=== PATIENT | female | born 1950 | race African-American/Black ===

== ENCOUNTER 2017-05-13 05:25 | Inpatient (IN) | payer MEDICARE, MEDICAID ==
[~2017-05-13] VITALS: Ht 152.4 cm; Wt 48.2 kg
[2017-05-13] VITALS (46 sets, daily range): BP systolic 104–194; BP diastolic 30–108
[2017-05-13] MEDS ORDERED: MIDAZOLAM HCL 5 MG/ML VIAL ONE (05:48)
[2017-05-13] MEDS ORDERED: PROPOFOL 10MG/ML 100ML 100 ML IV ONE ×2 (05:49→06:00)
[2017-05-13] MEDS ORDERED: ONDANSETRON HCL 4MG/2ML VIAL IV ONE (06:00)
[2017-05-13] MEDS ORDERED: MORPHINE SULFATE 4 MG/ML CPJ (NOT FOR IM USE) IV STA (06:00)
[2017-05-13] MEDS ORDERED: SUCCINYLCHOLINE CHLORIDE 200MG/10ML VIAL IV ONE ×2 (06:00)
[2017-05-13] MEDS ORDERED: ETOMIDATE 2MG/ML 10ML VIAL IV ONE ×2 (06:00)
[2017-05-13] MEDS ORDERED: VECURONIUM BROMIDE 10 MG/VIAL IV ONE ×2 (06:00)
[2017-05-13] MEDS ORDERED: ONDANSETRON HCL 4MG/2ML VIAL IV STA (06:00)
[2017-05-13] MEDS ORDERED: STERILE WATER FOR INJECTION 10ML VIAL ONE (06:00)
[2017-05-13] MEDS ORDERED: MIDAZOLAM HCL 2 MG/2 ML VIAL IV ONE (06:15)
[2017-05-13 06:53] LABS: BASOPHILS % 0.2 % (0.0-2.0); EOSINOPHILS % 1.6 % (0.0-5.0); HEMATOCRIT. 29.4 % (36.0-48.0); LYMPHOCYTES % 33.1 % (20.0-50.0); MEAN CORPUSCULAR HEMOGLOBIN 24.8 pg (28.0-32.0); MEAN CORPUSCULAR VOLUME 81.3 fL (81.0-99.0); MEAN PLATELET VOLUME 9.1 fl (7.4-10.4); MONOCYTES % 5.4 % (2.0-8.0); NEUTROPHILS % 59.7 % (40.0-76.0); PLATELET 283 x1000/uL (130-400); RED BLOOD CELL COUNT 3.62 mill/uL (4.2-5.4); RED CELL DISTRIBUTION WIDTH 17.6 % (11.6-14.6)
[2017-05-13 06:54] LABS: BG BASE EXCESS -8.1 mmol/L (-2.0-2.0); BG CARBOXYHEMOGLOBIN 0.2 % (0.5-1.5); BG DEOXYHEMOGLOBIN 1.2 % (0.0-5.0); BG FRACTION INSPIRED OXYGEN 100; BG HCO3 ACT 18.2 mmol/L (22.0-26.0); BG METHEMOGLOBIN 0.3 % (0.0-1.5); BG OXYGEN SATURATION 98.8 % (92.0-98.5); BG OXYHEMOGLOBIN 98.3 % (94.0-97.0); BG PH 7.275 (7.350-7.450); BG PO2 171.7 mmHg (75.0-100.0); BG SAMPLE SITE RIGHT RADIAL; BG TIDAL VOLUME(mL) 450 mL; BG TOTAL HEMOGLOBIN 10.2 g/dL (12.0-18.0); BG VENT MODE VENT - A/C; BG VENT RATE 16 set
[2017-05-13 07:04] LABS: CHLORIDE 107 mEq/L (98-107); TROPONIN I 0.02 ng/mL (0.00-0.04)
[2017-05-13 07:11] LABS: CARBON DIOXIDE 16 mEq/L (21-32)
[2017-05-13 07:23] LABS: INR 1.1; PARTIAL THROMBOPLASTIN TIME 21.5 sec (23.4-31.0)
[2017-05-13 07:42] LABS: CLARITY URINE CLEAR (CLEAR); COLOR URINE YELLOW (YELLOW); GLUCOSE URINE 3+ (NEGATIVE); KETONES URINE NEGATIVE (NEGATIVE); LEUKOCYTE ESTERASE URINE NEGATIVE (NEGATIVE); NITRITE URINE NEGATIVE (NEGATIVE); OCCULT BLOOD URINE 1+ (NEGATIVE); PH URINE 5.5 (4.5-8.0); PROTEIN URINE 1+ (NEGATIVE); SPECIFIC GRAVITY URINE 1.014 (1.005-1.030); UROBILINOGEN URINE 0.2 E.U./dL (0.2-1.0)
[2017-05-13] MEDS ORDERED: PROPOFOL 10MG/ML 100ML 100 ML IV PRN (09:30)
[2017-05-13] MEDS ORDERED: ENOXAPARIN 60MG/0.6ML SYR SUBCUT SCH (10:00)
[2017-05-13] MEDS: PANTOPRAZOLE SODIUM 40 MG/VIAL IV SCH (10:30)
[2017-05-13] MEDS ORDERED: FUROSEMIDE 40MG/4ML VIAL IVP NR (11:00)
[2017-05-13] MEDS ORDERED: IPRATROPIUM/ALBUTEROL 0.5-3(2.5)MG/3ML NEB HHN PRN (11:00)
[2017-05-13] MEDS ORDERED: IPRATROPIUM/ALBUTEROL 0.5-3(2.5)MG/3ML NEB INH PRN (11:15)
[2017-05-13] MEDS ORDERED: CLONIDINE 0.1MG TABLET PO PRN (11:15)
[2017-05-13] MEDS ORDERED: PIPERACILLIN/TAZ 3.375G PREMIX 50 ML IV SCH (11:15)
[2017-05-13] MEDS ORDERED: MAGNESIUM/ALUMINUM HYDROXIDE/SIMETHICONE 30ML UDC PO PRN (11:15)
[2017-05-13] MEDS ORDERED: ONDANSETRON HCL 4MG/2ML VIAL IV PRN (11:15)
[2017-05-13] MEDS ORDERED: DEXTROSE 50% WATER 50ML SYRINGE IV PRN (11:30)
[2017-05-13] MEDS: INSULIN LISPRO 100 UNITS/ML SUBCUT SCH ×3 (12:00→20:44)
[2017-05-13] MEDS: BLOOD SUGAR DIAGNOSTIC STRIP TEST SCH ×2 (12:00→18:02)
[2017-05-13] MEDS: BUDESONIDE 0.5MG/2ML NEB HHN SCH (12:10)
[2017-05-13] MEDS: IPRATROPIUM/ALBUTEROL 0.5-3(2.5)MG/3ML NEB HHN SCH ×3 (12:11→20:27)
[2017-05-13] MEDS: ASPIRIN 81MG TABLET PO SCH (12:27)
[2017-05-13 12:35] LABS: CHLORIDE 111 mEq/L (98-107)
[2017-05-13 12:44] LABS: CARBON DIOXIDE 23 mEq/L (21-32)
[2017-05-13] MEDS ORDERED: VANCOMYCIN 1 G PREMIX 200 ML IV SCH (13:00)
[2017-05-13] MEDS: PIPERACILLIN/TAZ 2.25G PREMIX 50 ML IV SCH ×2 (13:29→18:05)
[2017-05-13] MEDS: NITROGLYCERIN OINT 1GM/INCH UDPKT TD SCH ×2 (13:30→22:05)
[2017-05-13] MEDS: PROPOFOL 10MG/ML 100ML 100 ML IV PRN ×2 (13:31→22:14)
[2017-05-13 14:17] LABS: CREATINE KINASE MB FRACTION 4.8 ng/mL (0.5-3.6)
[2017-05-13 14:27] LABS: TROPONIN I 0.54 ng/mL (0.00-0.04)
[2017-05-13 17:04] LABS: CLARITY URINE TURBID (CLEAR); COLOR URINE YELLOW (YELLOW); GLUCOSE URINE NEGATIVE (NEGATIVE); KETONES URINE NEGATIVE (NEGATIVE); LEUKOCYTE ESTERASE URINE TRACE (NEGATIVE); NITRITE URINE NEGATIVE (NEGATIVE); OCCULT BLOOD URINE 2+ (NEGATIVE); PROTEIN URINE NEGATIVE (NEGATIVE); SPECIFIC GRAVITY URINE 1.014 (1.005-1.030); UROBILINOGEN URINE 0.2 E.U./dL (0.2-1.0)
[2017-05-13 17:11] LABS: *AMPHETAMINES SCREEN URINE NEGATIVE (NEGATIVE); *BARBITURATES SCREEN URINE NEGATIVE (NEGATIVE); *BENZODIAZEPINES SCREEN URINE PRESUMTIVE POSITIVE (NEGATIVE); *COCAINE SCREEN URINE NEGATIVE (NEGATIVE); CANNABINOID URINE SCREEN PRESUMTIVE POSITIVE (NEGATIVE); METHADONE URINE SCREEN NEGATIVE (NEGATIVE); OPIATES URINE SCREEN PRESUMTIVE POSITIVE (NEGATIVE); PHENCYCLIDINE URINE SCREEN NEGATIVE (NEGATIVE)
[2017-05-13] MEDS: FUROSEMIDE 40MG/4ML VIAL IV SCH (18:05)
[2017-05-13] MEDS ORDERED: LISI10TA5 PO (19:28)
[2017-05-13] MEDS ORDERED: SIMV20TA6 PO (19:28)
[2017-05-13] MEDS ORDERED: BECL8.7H NS (19:28)
[2017-05-13] MEDS ORDERED: TRIA15OI8 TP (19:28)
[2017-05-13] MEDS ORDERED: FERR12.5 PO (19:28)
[2017-05-13] MEDS ORDERED: ACET80TA20 PO (19:28)
[2017-05-13] MEDS ORDERED: AMLO10TA80 PO (19:28)
[2017-05-13] MEDS ORDERED: ASPI-867 PO (19:28)
[2017-05-13] MEDS: METHYLPREDNISOLONE SOD SUCC 40 MG/ML VIAL IV SCH (20:38)
[2017-05-13 23:18] LABS: TROPONIN I 0.34 ng/mL (0.00-0.04)
[2017-05-13 23:20] LABS: CREATINE KINASE MB FRACTION 3.7 ng/mL (0.5-3.6)
[2017-05-14] VITALS (50 sets, daily range): BP systolic 94–149; BP diastolic 39–107
[2017-05-14] MEDS: BUDESONIDE 0.5MG/2ML NEB HHN SCH ×3 (00:11→20:24)
[2017-05-14] MEDS: IPRATROPIUM/ALBUTEROL 0.5-3(2.5)MG/3ML NEB HHN SCH ×6 (00:11→20:24)
[2017-05-14] MEDS: PIPERACILLIN/TAZ 2.25G PREMIX 50 ML IV SCH ×4 (00:27→17:21)
[2017-05-14] MEDS: PROPOFOL 10MG/ML 100ML 100 ML IV PRN ×3 (05:14→21:11)
[2017-05-14] MEDS: BLOOD SUGAR DIAGNOSTIC STRIP TEST SCH ×5 (05:26→21:40)
[2017-05-14] MEDS: NITROGLYCERIN OINT 1GM/INCH UDPKT TD SCH ×3 (05:26→21:26)
[2017-05-14 06:07] LABS: HEMATOCRIT. 27.3 % (36.0-48.0); MEAN CORPUSCULAR HEMOGLOBIN 25.1 pg (28.0-32.0); MEAN CORPUSCULAR VOLUME 76.3 fL (81.0-99.0); PLATELET 239 x1000/uL (130-400); RED BLOOD CELL COUNT 3.58 mill/uL (4.2-5.4); RED CELL DISTRIBUTION WIDTH 17.3 % (11.6-14.6)
[2017-05-14] MEDS: INSULIN LISPRO 100 UNITS/ML SUBCUT SCH ×4 (07:03→21:00)
[2017-05-14] MEDS: VANCOMYCIN 1 G PREMIX 200 ML IV SCH (07:10)
[2017-05-14 07:47] LABS: CREATINE KINASE MB FRACTION 2.1 ng/mL (0.5-3.6); TROPONIN I 0.19 ng/mL (0.00-0.04)
[2017-05-14] MEDS: METHYLPREDNISOLONE SOD SUCC 40 MG/ML VIAL IV SCH ×2 (08:09→21:24)
[2017-05-14] MEDS: PANTOPRAZOLE SODIUM 40 MG/VIAL IV SCH (08:09)
[2017-05-14] MEDS: FUROSEMIDE 40MG/4ML VIAL IV SCH ×2 (08:09→17:21)
[2017-05-14] MEDS: ENOXAPARIN 40MG/0.4ML SYR SUBCUT SCH (08:10)
[2017-05-14] MEDS: ASPIRIN 81MG TABLET PO SCH (09:00)
[2017-05-14 09:48] LABS: BG BASE EXCESS -1.4 mmol/L (-2.0-2.0); BG DEOXYHEMOGLOBIN 2.1 % (0.0-5.0); BG FRACTION INSPIRED OXYGEN 40; BG HCO3 ACT 20.2 mmol/L (22.0-26.0); BG METHEMOGLOBIN 0.3 % (0.0-1.5); BG OXYGEN SATURATION 97.9 % (92.0-98.5); BG OXYHEMOGLOBIN 97.6 % (94.0-97.0); BG PCO2 24.6 mmHg (35.0-45.0); BG PH 7.533 (7.350-7.450); BG PO2 110.4 mmHg (75.0-100.0); BG SAMPLE SITE LEFT RADIAL; BG TIDAL VOLUME(mL) 450 mL; BG TOTAL HEMOGLOBIN 10.2 g/dL (12.0-18.0); BG VENT MODE VENT - A/C; BG VENT RATE 16 set
[2017-05-14] MEDS ORDERED: MORPHINE SULFATE 4 MG/ML CPJ (NOT FOR IM USE) IV PRN (10:15)
[2017-05-14 11:09] LABS: PLATELET ESTIMATE NORMAL
[2017-05-14] MEDS ORDERED: CARVEDILOL 3.125 MG TABLET PO SCH (21:00)
[2017-05-15] VITALS (47 sets, daily range): BP systolic 81–184; BP diastolic 32–90
[2017-05-15] MEDS: VANCOMYCIN 1 G PREMIX 200 ML IV SCH ×2 (00:39→19:42)
[2017-05-15] MEDS: PIPERACILLIN/TAZ 2.25G PREMIX 50 ML IV SCH ×4 (00:39→17:37)
[2017-05-15] MEDS: IPRATROPIUM/ALBUTEROL 0.5-3(2.5)MG/3ML NEB HHN SCH ×5 (01:46→20:36)
[2017-05-15] MEDS: PROPOFOL 10MG/ML 100ML 100 ML IV PRN (05:07)
[2017-05-15 05:57] LABS: TROPONIN I 0.07 ng/mL (0.00-0.04)
[2017-05-15] MEDS: NITROGLYCERIN OINT 1GM/INCH UDPKT TD SCH ×3 (06:32→21:01)
[2017-05-15] MEDS: INSULIN LISPRO 100 UNITS/ML SUBCUT SCH ×4 (06:43→20:41)
[2017-05-15] MEDS: BLOOD SUGAR DIAGNOSTIC STRIP TEST SCH ×4 (06:43→20:41)
[2017-05-15 08:20] LABS: BG BASE EXCESS 1.5 mmol/L (-2.0-2.0); BG CARBOXYHEMOGLOBIN 1.1 % (0.5-1.5); BG DEOXYHEMOGLOBIN 1.7 % (0.0-5.0); BG FRACTION INSPIRED OXYGEN 35; BG HCO3 ACT 24.2 mmol/L (22.0-26.0); BG METHEMOGLOBIN 0.4 % (0.0-1.5); BG OXYGEN SATURATION 98.3 % (92.0-98.5); BG OXYHEMOGLOBIN 96.8 % (94.0-97.0); BG PCO2 31.1 mmHg (35.0-45.0); BG PH 7.509 (7.350-7.450); BG PO2 113.8 mmHg (75.0-100.0); BG SAMPLE SITE LEFT BRACHIAL; BG TIDAL VOLUME(mL) 450 mL; BG TOTAL HEMOGLOBIN 9.1 g/dL (12.0-18.0); BG VENT MODE VENT - A/C; BG VENT RATE 12 set
[2017-05-15] MEDS: FUROSEMIDE 40MG/4ML VIAL IV SCH ×2 (08:49→17:37)
[2017-05-15] MEDS: ENOXAPARIN 40MG/0.4ML SYR SUBCUT SCH (08:49)
[2017-05-15] MEDS: PANTOPRAZOLE SODIUM 40 MG/VIAL IV SCH (08:49)
[2017-05-15] MEDS: METHYLPREDNISOLONE SOD SUCC 40 MG/ML VIAL IV SCH ×2 (08:49→21:01)
[2017-05-15] MEDS: ASPIRIN 81MG TABLET PO SCH (08:50)
[2017-05-15] MEDS: BUDESONIDE 0.5MG/2ML NEB HHN SCH ×2 (08:56→20:36)
[2017-05-15 10:14] LABS: BG BASE EXCESS 0.5 mmol/L (-2.0-2.0); BG CARBOXYHEMOGLOBIN 0.1 % (0.5-1.5); BG DEOXYHEMOGLOBIN 3.3 % (0.0-5.0); BG FRACTION INSPIRED OXYGEN 35; BG HCO3 ACT 23.8 mmol/L (22.0-26.0); BG METHEMOGLOBIN 0.3 % (0.0-1.5); BG OXYGEN SATURATION 96.7 % (92.0-98.5); BG OXYHEMOGLOBIN 96.3 % (94.0-97.0); BG PCO2 33.4 mmHg (35.0-45.0); BG PH 7.471 (7.350-7.450); BG PO2 95.5 mmHg (75.0-100.0); BG PRESSURE SUPPORT 6; BG SAMPLE SITE RIGHT RADIAL; BG TOTAL HEMOGLOBIN 9.7 g/dL (12.0-18.0); BG VENT MODE VENT - CPAP
[2017-05-15] MEDS: CLOPIDOGREL 75MG TABLET PO SCH (11:26)
[2017-05-15] MEDS: HYDRALAZINE 20MG/ML VIAL IV PRN (11:27)
[2017-05-15 15:44] LABS: CREATINE KINASE MB FRACTION 3.2 ng/mL (0.5-3.6)
[2017-05-16] VITALS (40 sets, daily range): BP systolic 96–167; BP diastolic 30–109
[2017-05-16] MEDS: PIPERACILLIN/TAZ 2.25G PREMIX 50 ML IV SCH ×5 (00:06→23:27)
[2017-05-16] MEDS: IPRATROPIUM/ALBUTEROL 0.5-3(2.5)MG/3ML NEB HHN SCH ×6 (00:27→20:10)
[2017-05-16] MEDS: NITROGLYCERIN OINT 1GM/INCH UDPKT TD SCH ×3 (05:28→22:57)
[2017-05-16 06:00] LABS: HEMATOCRIT. 28.3 % (36.0-48.0); MEAN CORPUSCULAR HEMOGLOBIN 24.1 pg (28.0-32.0); MEAN CORPUSCULAR VOLUME 75.6 fL (81.0-99.0); MEAN PLATELET VOLUME 8.9 fl (7.4-10.4); PLATELET 260 x1000/uL (130-400); RED BLOOD CELL COUNT 3.74 mill/uL (4.2-5.4); RED CELL DISTRIBUTION WIDTH 17.8 % (11.6-14.6)
[2017-05-16 06:47] LABS: CHLORIDE 101 mEq/L (98-107)
[2017-05-16] MEDS: INSULIN LISPRO 100 UNITS/ML SUBCUT SCH ×4 (07:00→22:56)
[2017-05-16] MEDS: BLOOD SUGAR DIAGNOSTIC STRIP TEST SCH ×4 (07:09→20:55)
[2017-05-16 07:27] LABS: CARBON DIOXIDE 23 mEq/L (21-32)
[2017-05-16] MEDS: BUDESONIDE 0.5MG/2ML NEB HHN SCH ×3 (08:55→20:09)
[2017-05-16 09:42] LABS: PLATELET ESTIMATE NORMAL
[2017-05-16] MEDS: CLOPIDOGREL 75MG TABLET PO SCH (09:45)
[2017-05-16] MEDS: ASPIRIN 81MG TABLET PO SCH (09:45)
[2017-05-16] MEDS: METHYLPREDNISOLONE SOD SUCC 40 MG/ML VIAL IV SCH (09:45)
[2017-05-16] MEDS: FUROSEMIDE 40MG/4ML VIAL IV SCH (09:45)
[2017-05-16] MEDS: ENOXAPARIN 40MG/0.4ML SYR SUBCUT SCH (09:46)
[2017-05-16] MEDS: PANTOPRAZOLE SODIUM 40 MG/VIAL IV SCH (09:48)
[2017-05-16] MEDS ORDERED: POTASSIUM CHLORIDE INJ 40 MEQ in DEXT 5% WATER 250 ML IV NR (10:00)
[2017-05-16] MEDS ORDERED: POTASSIUM CHLORIDE 20MEQ TABLET SR PO NR (10:30)
[2017-05-16] MEDS: VANCOMYCIN 1 G PREMIX 200 ML IV SCH (13:38)
[2017-05-16] MEDS: ACETAMINOPHEN 325MG TABLET PO PRN (22:59)
[2017-05-17] VITALS (35 sets, daily range): BP systolic 98–153; BP diastolic 50–81
[2017-05-17] MEDS: IPRATROPIUM/ALBUTEROL 0.5-3(2.5)MG/3ML NEB HHN SCH ×6 (00:20→21:11)
[2017-05-17 05:40] LABS: HEMATOCRIT 26.6 % (36.0-48.0); HEMOGLOBIN 8.6 g/dL (12.0-16.0); MEAN CORPUSCULAR HEMOGLOBIN 24.8 pg (28.0-32.0); MEAN CORPUSCULAR VOLUME 76.4 fL (81.0-99.0); PLATELET 235 x1000/uL (130-400); RED BLOOD CELL COUNT 3.48 mill/uL (4.2-5.4); RED CELL DISTRIBUTION WIDTH 18.1 % (11.6-14.6)
[2017-05-17] MEDS: PIPERACILLIN/TAZ 2.25G PREMIX 50 ML IV SCH ×3 (05:40→18:39)
[2017-05-17] MEDS: NITROGLYCERIN OINT 1GM/INCH UDPKT TD SCH ×3 (05:40→21:35)
[2017-05-17] MEDS: BLOOD SUGAR DIAGNOSTIC STRIP TEST SCH ×4 (05:40→21:35)
[2017-05-17] MEDS: INSULIN LISPRO 100 UNITS/ML SUBCUT SCH ×4 (06:21→21:00)
[2017-05-17] MEDS: VANCOMYCIN 1 G PREMIX 200 ML IV SCH (06:56)
[2017-05-17] MEDS: BUDESONIDE 0.5MG/2ML NEB HHN SCH ×2 (08:33→21:10)
[2017-05-17] MEDS: ENOXAPARIN 40MG/0.4ML SYR SUBCUT SCH (09:00)
[2017-05-17] MEDS: PANTOPRAZOLE SODIUM 40 MG/VIAL IV SCH (09:04)
[2017-05-17] MEDS: HYDRALAZINE 20MG/ML VIAL IV PRN (09:04)
[2017-05-17] MEDS: ASPIRIN 81MG TABLET PO SCH (09:40)
[2017-05-17] MEDS: PREDNISONE 20MG TABLET PO SCH (09:40)
[2017-05-17] MEDS: CLOPIDOGREL 75MG TABLET PO SCH (09:40)
[2017-05-17] MEDS: SODIUM CHLORIDE 0.45% 1,000 ML IV SCH (09:41)
[2017-05-17] MEDS ORDERED: KCL 20MEQ/100ML PREMIX 100 ML IV NR (10:00)
[2017-05-17] MEDS ORDERED: HEPARIN SODIUM 1,000 UNIT/1ML VIAL IV ONE (12:24)
[2017-05-17] MEDS ORDERED: MIDAZOLAM HCL 2 MG/2 ML VIAL ONE (14:58)
[2017-05-17] MEDS ORDERED: IODIXANOL 320MG/ML 100 ML BOTTLE IV ONE (14:58)
[2017-05-17] MEDS ORDERED: FENTANYL CITRATE/PF 50MCG/ML 2ML VIAL ONE (14:58)
[2017-05-17] MEDS ORDERED: LIDOCAINE HCL 1% 20ML VIAL (Pyxis) INJ ONE (14:59)
[2017-05-17] MEDS ORDERED: HYDRALAZINE 20MG/ML VIAL ONE (15:36)
[2017-05-17] MEDS ORDERED: ACETAMINOPHEN 325MG TABLET PO PRN ×2 (15:45)
[2017-05-17] MEDS ORDERED: ATROPINE SULFATE 1MG/10ML SYR IV PRN ×2 (15:45)
[2017-05-18] VITALS (12 sets, daily range): BP systolic 101–159; BP diastolic 44–94
[2017-05-18] MEDS: IPRATROPIUM/ALBUTEROL 0.5-3(2.5)MG/3ML NEB HHN SCH ×6 (00:41→20:49)
[2017-05-18] MEDS: PIPERACILLIN/TAZ 2.25G PREMIX 50 ML IV SCH ×4 (00:47→17:23)
[2017-05-18] MEDS: VANCOMYCIN 1 G PREMIX 200 ML IV SCH ×2 (01:54→18:08)
[2017-05-18] MEDS: SODIUM CHLORIDE 0.45% 1,000 ML IV SCH (05:17)
[2017-05-18] MEDS: NITROGLYCERIN OINT 1GM/INCH UDPKT TD SCH ×3 (06:02→22:44)
[2017-05-18] MEDS: BLOOD SUGAR DIAGNOSTIC STRIP TEST SCH ×4 (06:02→20:22)
[2017-05-18] MEDS: INSULIN LISPRO 100 UNITS/ML SUBCUT SCH ×4 (06:39→20:29)
[2017-05-18 07:08] LABS: BASOPHILS % 0.1 % (0.0-2.0); EOSINOPHILS % 0.1 % (0.0-5.0); HEMATOCRIT. 24.9 % (36.0-48.0); LYMPHOCYTES % 24.7 % (20.0-50.0); MEAN CORPUSCULAR HEMOGLOBIN 24.4 pg (28.0-32.0); MEAN CORPUSCULAR VOLUME 75.7 fL (81.0-99.0); MEAN PLATELET VOLUME 8.7 fl (7.4-10.4); MONOCYTES % 13.1 % (2.0-8.0); PLATELET 234 x1000/uL (130-400); RED BLOOD CELL COUNT 3.29 mill/uL (4.2-5.4); RED CELL DISTRIBUTION WIDTH 17.7 % (11.6-14.6)
[2017-05-18 07:19] LABS: CHLORIDE 104 mEq/L (98-107)
[2017-05-18 07:39] LABS: CARBON DIOXIDE 22 mEq/L (21-32)
[2017-05-18] MEDS: ASPIRIN 81MG TABLET PO SCH (09:00)
[2017-05-18] MEDS: PREDNISONE 20MG TABLET PO SCH (09:01)
[2017-05-18] MEDS: CLOPIDOGREL 75MG TABLET PO SCH (09:01)
[2017-05-18] MEDS: PANTOPRAZOLE SODIUM 40 MG/VIAL IV SCH (09:01)
[2017-05-18] MEDS ORDERED: POTASSIUM CHLORIDE 20MEQ/PACKET PO NR (10:00)
[2017-05-18] MEDS: ENOXAPARIN 40MG/0.4ML SYR SUBCUT SCH (10:05)
[2017-05-18] MEDS ORDERED: POTASSIUM CHLORIDE 20MEQ TABLET SR PO ONE (11:15)
[2017-05-18] MEDS: ACETAMINOPHEN 325MG TABLET PO PRN (18:35)
[2017-05-19] VITALS (10 sets, daily range): BP systolic 90–167; BP diastolic 42–78
[2017-05-19] MEDS: IPRATROPIUM/ALBUTEROL 0.5-3(2.5)MG/3ML NEB HHN SCH ×4 (00:53→11:32)
[2017-05-19] MEDS: BUDESONIDE 0.5MG/2ML NEB HHN SCH ×2 (00:54→11:32)
[2017-05-19] MEDS: SODIUM CHLORIDE 0.45% 1,000 ML IV SCH (01:23)
[2017-05-19] MEDS: PIPERACILLIN/TAZ 2.25G PREMIX 50 ML IV SCH ×3 (01:23→12:00)
[2017-05-19] MEDS: NITROGLYCERIN OINT 1GM/INCH UDPKT TD SCH (05:22)
[2017-05-19 06:37] LABS: BASOPHILS % 0.1 % (0.0-2.0); EOSINOPHILS % 0.5 % (0.0-5.0); HEMATOCRIT. 24.2 % (36.0-48.0); LYMPHOCYTES % 24.6 % (20.0-50.0); MEAN CORPUSCULAR HEMOGLOBIN 25.2 pg (28.0-32.0); MEAN CORPUSCULAR VOLUME 76.1 fL (81.0-99.0); MEAN PLATELET VOLUME 8.6 fl (7.4-10.4); MONOCYTES % 10.3 % (2.0-8.0); NEUTROPHILS % 64.5 % (40.0-76.0); PLATELET 219 x1000/uL (130-400); RED BLOOD CELL COUNT 3.18 mill/uL (4.2-5.4); RED CELL DISTRIBUTION WIDTH 18.1 % (11.6-14.6)
[2017-05-19] MEDS: BLOOD SUGAR DIAGNOSTIC STRIP TEST SCH ×2 (06:58→12:29)
[2017-05-19 07:17] LABS: CARBON DIOXIDE 21 mEq/L (21-32); CHLORIDE 109 mEq/L (98-107)
[2017-05-19] MEDS: INSULIN LISPRO 100 UNITS/ML SUBCUT SCH ×2 (07:20→12:20)
[2017-05-19] MEDS: ASPIRIN 81MG TABLET PO SCH (08:54)
[2017-05-19] MEDS: CLOPIDOGREL 75MG TABLET PO SCH (08:54)
[2017-05-19] MEDS: ENOXAPARIN 40MG/0.4ML SYR SUBCUT SCH (08:55)
[2017-05-19] MEDS ORDERED: FAMOTIDINE 20MG TABLET PO SCH (09:00)
[2017-05-19] MEDS ORDERED: CLOP75TA16 PO (10:55)
[2017-05-19] MEDS ORDERED: PULM50 HHN (10:55)
[2017-05-19] MEDS ORDERED: AMLO10TA80 PO (10:55)
[2017-05-19] MEDS ORDERED: LISI10TA5 PO (10:55)
[2017-05-19] MEDS ORDERED: ASPI-1160 PO (10:55)
[2017-05-19] MEDS ORDERED: ATOR10TA PO (10:57)
[2017-05-19] MEDS: VANCOMYCIN 1 G PREMIX 200 ML IV SCH (12:30)
== END 2017-05-19 15:30 | disposition home or self-care (01) | DRG 871 ==
LOC: ER 05:25 → MICUSO 06:20 → ENRESERV 07:00 → MICUSO 05-14 15:45 → 3WST 05-17 15:53
PROVIDERS: ADMIT Internal Medicine; ATTEND Internal Medicine
PROC: 5A1945Z Respiratory Ventilation, 24-96 Consecutive Hours (ICD-10-PCS; 2017-05-13)
PROC: 0BH17EZ Insertion of Endotracheal Airway into Trachea, Via Natural or Artificial Opening (ICD-10-PCS; 2017-05-13)
PROC: 4A023N7 Measurement of Cardiac Sampling and Pressure, Left Heart, Percutaneous Approach (ICD-10-PCS; principal; 2017-05-17)
PROC: B2111ZZ Fluoroscopy of Multiple Coronary Arteries using Low Osmolar Contrast (ICD-10-PCS; 2017-05-17)
PROC: B2151ZZ Fluoroscopy of Left Heart using Low Osmolar Contrast (ICD-10-PCS; 2017-05-17)
DX: A41.89 Other specified sepsis (principal); J96.00 Acute respiratory failure, unspecified whether with hypoxia or hypercapnia; I21.4 Non-ST elevation (NSTEMI) myocardial infarction; I50.23 Acute on chronic systolic (congestive) heart failure; E87.2 Acidosis; J18.9 Pneumonia, unspecified organism; J44.1 Chronic obstructive pulmonary disease with (acute) exacerbation; J45.901 Unspecified asthma with (acute) exacerbation; I11.0 Hypertensive heart disease with heart failure; I42.9 Cardiomyopathy, unspecified; E11.9 Type 2 diabetes mellitus without complications; E78.5 Hyperlipidemia, unspecified; E87.6 Hypokalemia; I25.10 Atherosclerotic heart disease of native coronary artery without angina pectoris; Y95 Nosocomial condition; Z87.891 Personal history of nicotine dependence
CPT/HCPCS: 31500; 36415; 36600; 51702; 70450; 70551; 71010; 74176; 80048; 80053; 80061; 80202; 80305; 81001; 82375; 82550; 82553; 82805; 82962; 83036; 83605; 83735; 83880; 84443; 84478; 84484; 85025; 85027; 85379; 85610; 85730; 86850; 86900; 87040; 87070; 87086; 92610; 93005; 93306; 93458; 93970; 94002; 94003; 94640; 94664; 96374; 96375; 99285; A4216; A6261; C1760; C1769; C1887; C1893; C9113; J0330; J0360; J1644; J1650; J1815; J1940; J2250; J2270; J2405; J2543; J2704; J2920; J3010; J3370; J3480; J3490; J7050; J7060; J7512; J7620; J7626; Q9967; A4315